=== PATIENT | male | born 1960 | race Caucasian/White ===

== ENCOUNTER → 2020-03-28 15:07 | Outpatient (CLI) | payer BC, SELFPAY ==
--- NOTE | ~2020-03-28 | XR_ITS ---
EXAMINATION: XR knee RT min 4V DATE: 03/28/2020 15:34 INDICATION: Right knee pain. TECHNIQUE: 4 views of right knee were obtained. COMPARISON: None. FINDINGS: Bone alignment is normal. No fracture. There is mild tricompartmental osteoarthritis. There is a small knee joint effusion. IMPRESSION: 1. Mild right knee osteoarthritis. 2. Small right knee joint effusion. Reviewed, dictated and finalized at location A. ORT STATION SUPERVISOR
== END ==
PROVIDERS: PCP Family Medicine Adolescent Medicine; Visit Provider Family Medicine Adolescent Medicine
DX: M17.11 Unilateral primary osteoarthritis, right knee (principal); M25.461 Effusion, right knee
CPT/HCPCS: 73564

== ENCOUNTER → 2021-12-11 10:05 | Outpatient (CLI) | payer OTHER, SELFPAY ==
--- NOTE | ~2021-12-11 | MR_ITS ---
EXAMINATION: MR thoracic spine wo con DATE: 12/11/2021 10:53 INDICATION: Paresthesias of both lower legs. TECHNIQUE: Magnetic resonance imaging (MRI) of the thoracic spine was performed without intravenous c ontrast. Sagittal localizer T1-weighted FSE of the cervical spine was obtained. Thoracic spine sequen michelle included sagittal T2-weighted FSE, sagittal T1-weighted FSE, sagittal T2-weighted FS FSE, and axi al T2-weighted FSE. COMPARISON: None FINDINGS: There is 5 degrees levocurvature of upper thoracic spine. Vertebral body heights are normal . There is severe cervical spondylosis. There is mildly decreased disc height at T5-T6. At T5-T6, the disc is bulging with mild central canal stenosis. At T7-T8, there is a left central protrusion with mild central canal stenosis. At T8-T9, there is a right central extrusion with mild central canal annamarie nosis. There is multilevel facet joint osteoarthritis in thoracic spine, severe on the right at T3-T4 and on the left at T5-T6 and T10-T11. On the right, there is mild neural foraminal stenosis at T3-T4 and T4-T5 and moderate neural foraminal stenosis at T10-T11. On the left, there is mild neural andra inal stenosis at T1-T2 and T9-T10 and moderate neural foraminal stenosis at T10-T11. The spinal cord signal intensity is normal. IMPRESSION: 1. Severe cervical spondylosis and moderate thoracic spondylosis. Reviewed, dictated and finalized at location B.
--- NOTE | ~2021-12-11 | MR_ITS ---
EXAMINATION: MR lumbar spine wo con DATE: 12/11/2021 11:00 INDICATION: Tingling in the legs. TECHNIQUE: Magnetic resonance imaging (MRI) of the lumbar spine was performed without intravenous con trast. Sequences included sagittal T2-weighted FSE, sagittal T2-weighted FS FSE, sagittal T1-weighted FSE, and axial T2-weighted FSE. COMPARISON: None FINDINGS: There is 3 degrees levocurvature of lumbar spine. Vertebral body heights are normal. There is moderately decreased disc height at L2-L3. The distal spinal cord signal intensity is normal. The conus medullaris is at L1. The following disc levels are specifically discussed: L1-L2: The disc does not extend beyond the endplate margin. There is moderate bilateral facet joint o steoarthritis. There is no neural foraminal stenosis. There is no central canal stenosis. L2-L3: The disc is bulging. There is mild bilateral facet joint osteoarthritis. There is moderate rig ht and mild left neural foraminal stenosis. There is mild central canal stenosis. L3-L4: The disc is bulging and has an annular fissure. There is severe bilateral facet joint osteoart hritis. There is a 7 mm synovial cyst from left facet joint in the epidural space. There is moderate bilateral neural foraminal stenosis. There is moderate central canal stenosis. L4-L5: The disc is bulging as an annular fissure. There is severe bilateral facet joint osteoarthriti s. There is moderate right and severe left neural foraminal stenosis. There is moderate central canal stenosis. L5-S1: The disc is mildly bulging. There is severe bilateral facet joint osteoarthritis. There is mil d bilateral neural foraminal stenosis. There is no central canal stenosis. IMPRESSION: 1. Moderate lumbar spondylosis. Reviewed, dictated and finalized at location A.
== END ==
PROVIDERS: PCP Family Medicine Adolescent Medicine; Visit Provider Family Medicine Adolescent Medicine
DX: R20.2 Paresthesia of skin (principal); M47.896 Other spondylosis, lumbar region; M47.894 Other spondylosis, thoracic region; M47.892 Other spondylosis, cervical region
CPT/HCPCS: 72146; 72148

== ENCOUNTER → 2022-02-08 11:39 | Outpatient (CLI) | payer OTHER, SELFPAY ==
--- NOTE | ~2022-02-08 | XR_ITS ---
EXAMINATION: XR lumbar spine min 4V DATE: 02/08/2022 11:51 INDICATION: Chronic low back pain TECHNIQUE: Anteroposterior and lateral in neutral, flexion and extension views of the lumbar spine we re obtained. COMPARISON: MRI, 12/11/2021 FINDINGS: The vertebral body heights and alignment are normal. No hypermobility is present with flexi on or extension. There is moderate loss of intervertebral disc space height at L2-3. Small degenerati ve osteophytes project from the anterior endplates of multiple vertebral bodies. There is severe face t joint osteoarthritis of lower lumbar spine. There is moderate osteoarthritis of the hips. IMPRESSION: 1. Moderate lumbar spondylosis without acute findings. Reviewed, dictated and finalized at location A. ICAL MACHINE TENDER
== END ==
PROVIDERS: PCP Neurological Surgery; Visit Provider Neurological Surgery
DX: M48.061 Spinal stenosis, lumbar region without neurogenic claudication (principal); M47.896 Other spondylosis, lumbar region
CPT/HCPCS: 72110

== ENCOUNTER 2022-02-08 13:03 | Outpatient (CLI) | payer OTHER, SELFPAY ==
--- NOTE | 2022-02-08 13:40 | ECG_ITS ---
Measurements Intervals [place] Rate: 68 P: 55 HI: 203 QRS: 13 QRSD: 94 T: -1 QT: 364 QTc: 389 Interpretive Statements SINUS RHYTHM WITHIN NORMAL LIMITS NO PREVIOUS ECG AVAILABLE FOR COMPARISON Electronically Signed On 02-08-2022 16:45:36 [employer] MATERIAL by Esvin Savage M.D.
[2022-02-08 13:48] LABS: Basophils Absolute Auto 0.1 K/mm3 (0.0-0.1); Basophils Percent Auto 1.3 % (0.2-1.2); Eosinophils Absolute Auto 0.2 K/mm3 (0-0.3); Hematocrit 45.9 % (42.0-52.0); Hemoglobin 15.8 g/dL (14.0-18.0); Immature Granulocyte Absolute 0.01 K/mm3 (0.00-0.031); Immature Granulocyte Percent A 0.2 % (0-0.5); Lymphocytes Absolute Auto 1.52 K/mm3 (0.9-3.2); Lymphocytes Percent Auto 27.7 % (18.3-44.2); Mean Corpuscular HGB Conc 34.4 g/dl (32-36); Mean Corpuscular Hemoglobin 31.3 pg (26-34); Mean Corpuscular Volume 90.9 fl (80-100); Mean Platelet Volume 9.1 fl (7.4-10.4); Monocytes Absolute Auto 0.6 K/mm3 (0.1-0.6); Monocytes Percent Auto 10.4 % (2.6-8.5); Neutrophils Absolute Auto 3.1 K/mm3 (1.3-6.7); Neutrophils Percent Auto 56.4 % (45.5-73.1); Platelet Count Result 165 k/mm3 (150-375); Red Blood Count 5.05 M/mm3 (4.6-6.20); Red Cell Distribution Width 12.4 % (11.5-14.5); White Blood Count 5.5 K/mm3 (4.5-10.0)
[2022-02-08 14:01] LABS: Anion Gap 6 mmol/L (8-16); Blood Urea Nitrogen 17 mg/dL (9-20); Calcium 9.3 mg/dL (8.4-10.2); Carbon Dioxide 31 mmol/L (22-30); Chloride 100 mmol/L (98-107); Estimated Glomerular Filt Rate > 60; Glucose 103 mg/dL (65-110); Potassium 3.9 mmol/L (3.4-5.0); Sodium 137 mmol/L (137-145)
[2022-02-08 14:03] LABS: INR 1.1; Partial Thromboplastin Time 25.7 SECONDS (22.3-36.8); Prothrombin Time 13.5 Seconds (11.1-14.7)
[2022-02-08 14:26] LABS: Add Urine Microscopic? NO; Appearance Urine Clear (Clear); Bilirubin Urine Negative (Negative); Blood Urine Negative (Negative); Color Urine Light Yellow (Yellow); Glucose Urine UA Negative (Negative); Ketones Urine Negative (Negative); Leukocyte Esterase Ur Negative LEU/UL (Negative); Nitrate Urine Negative (Negative); Protein Urine Negative (Negative); Specific Grav Ur 1.015 (1.001-1.035); Urobilinogen Urine 0.2 mg/dL (<2.0)
== END 2022-02-08 13:04 | disposition home or self-care (01) ==
PROVIDERS: PCP Neurological Surgery; Visit Provider Neurological Surgery
DX: Z01.818 Encounter for other preprocedural examination (principal)
CPT/HCPCS: 36415; 80048; 81003; 85025; 85610; 85730; 86850; 86900; 86901; 93005

== ENCOUNTER 2022-03-29 02:01 | Day surgery (SDC) | payer OTHER, SELFPAY ==
[2022-03-20 12:46] VITALS: BMI 27.1
--- NOTE | 2022-03-20 12:51 | PC.NURSE ---
Report to the Outpatient Waiting Room, entrance under the green pavilion located off [facility], at time 0600 on date 03/29/22. Planned Procedure Time: 0730. Time changes happen often and if your time is changed the preop area will call you the afternoon before. - You and your visitor will be asked to self-screen and do not enter if you have any COVID symptoms. - Only one visitor is requested with a max of two and NO children visitors are allowed at this time. - The patient visitor may be requested to leave or wait in car when not with patient due to distancing restrictions. - A mask is optional within the hospital at this time. Patients may have clear liquids (water, carbonated beverages, clear teas, apple juice) until 3 hours prior to surgery with a maximum of 20 ounces. - No food from midnight until time of surgery Take the following medications with a SIP of water the morning of surgery: NONE DO NOT STOP ANY OF YOUR OTHER PRESCRIPTION MEDICATIONS PRIOR TO SURGERY?EXCEPT THE FOLLOWING Medications to discontinue per physician: N/A Date to take last dose: N/A Please no make-up, nail filipino, hairspray, perfume, deodorant, or body powder the day of surgery. No jewelry (including any body piercings) or valuables the day of surgery, leave them at home. Please take a shower or bath the night before, or the morning of, surgery with an antibacterial soap. Wear comfortable, loose fitting clothing. Children are encouraged to wear pajamas. - Jewelry must be removed prior to entering the operating room. Rings and piercings that are not removed may be cut off. - The hospital will not accept responsibility for valuables. - Please leave all valuables, including medications, at home the day of surgery. If you are going home after surgery, a licensed dump truck driver off highway must drive you home. - NO public transportation without another adult if you receive anesthesia. - We recommend that an adult stay with you for 24 hours following discharge. - We also recommend that you do not drive, make important decision, drink alcoholic beverages, or take any drugs that were not prescribed by your health care provider for at least 24 hours after your discharge time. Follow any additional instructions given to you from your surgeon. If you or anyone in your household have experienced Covid symptoms in the past week, please notify your surgeon or the nurse liaison at the phone number below for possible testing. Telephone instructions given to PT - MARLENE ALEXANDRE and asked if any additional questions and then verbalized understanding. Patient advised to call surgeon office or pre surgery nurse liaison [phone] if any additional questions.
[2022-03-29] VITALS (11 sets, daily range): BP systolic 133–188; BP diastolic 69–106; PULSE 76–100; RESP 8–20; TEMP 36–36.5; O2SAT 92–100
--- NOTE | ~2022-03-29 | XR_ITS ---
EXAMINATION: XR fluoroscopy no charge DATE: 03/29/2022 11:14 INDICATION: L3-L4 and L4-L5 lumbar decompression TECHNIQUE: 4 fluoroscopic images obtained in lateral projection of the lower lumbar spine during proc edure performed by Dr. Rouse. Radiologist was not present for the imaging or procedure. The amount of fluoroscopy time used during this procedure was 0.1 minutes. COMPARISON: Right breast dated 02/08/2022 FINDINGS/IMPRESSION: Images demonstrate surgical instruments laying soft tissue retractors projecting over a lucent operat wyatt defect posterior to the lower lumbar spine. See procedure note for further detail. Reviewed, dictated and finalized at location A. PROCESSING CONSULTANT
[2022-03-29] MEDS: LACTATED RINGERS 1,000 ML 30 ML IV CONT ×2 (06:20→11:18)
--- NOTE | 2022-03-29 07:03 | WPDANESEPPF ---
Anes - Initial Pre Proc Eval Procedure: Operation Date: 03/29/22 08:00 Proposed Procedures p L3-4, L4-5 Lumbar Decompression - Quyen Rouse MD Date/Time: 03/29/22 07:03 Surgeon: Quyen Rouse MD Pre Op Diagnosis: lumbar stenosis, synovial cyst Patient Data Age: 62 Gender: M Height: 1.83 m Weight: 90.4 kg Last Vital Signs Temp 36.0 C L 03/29/22 06:12 Pulse 88 03/29/22 06:12 Resp 16 03/29/22 06:12 BP 133/88 03/29/22 06:12 Pulse Ox 98 03/29/22 06:12 O2 Del Method Room Air 03/29/22 06:12 Allergies Allergy/AdvReac Type Severity Reaction Status Date / Time No Known Allergies Allergy Verified 03/29/22 06:52 Home Medications Medication Instructions Recorded Confirmed Type enalapril 10 1 tablet PO DAILY #90 tabs 05/18/21 03/29/22 Rx mg-hydrochlorothiazide 25 mg tablet trazodone 100 mg tablet 100 mg PO QHS #90 tabs 05/18/21 03/29/22 Rx fenofibrate 160 mg tablet 160 mg PO DAILY #90 tabs 02/06/22 03/29/22 Rx pravastatin 40 mg tablet 40 mg PO DAILY #90 tabs 02/06/22 03/29/22 Rx Patient hx anesthesia problems: none Family hx anesthesia problems: none Results Review: All pre-operative results and documents have been reviewed as part of the pre-operative evaluation. [facility]LY [facility] Past Medical History Medical History Normal colonoscopy 03/10 Repeat 03/20 Surgical History Surgical History History of hemorrhoidectomy (2017) History of vasectomy Family History Family History Sibling Family history of elevated blood lipids Father Family history of cardiovascular disease Other Diabetes mellitus Family history of malignant neoplasm Hypertension Social History Social History Smoking packs per day: 2 Smoking cigarettes per day: 40.0 Years smoked: 12 Smoking pack-years: 24.00 Smoking status: Former smoker Tobacco type: cigarettes Second hand tobacco smoke exposure: No Smoking end date: 02/24/87 Alcohol intake: current Alcohol use details: RARE Substance use: never Substance use type: does not use Living arrangements: with family Occupation/Education: retired Gender identity (if verbalized by the patient): Male Sexual Orientation (if Verbalized by the Patient): Straight or Heterosexual Spiritual care concerns: No Agree to blood products: Yes Anes - Eval Final PreProcedure Day of Procedure 03/29/22 07:03 Patient weight: normal Heart: regular rate and rhythm Lungs: clear to auscultation Airway: Mallampati scale class II Neurological: alert and oriented Last oral intake: >/= 8 hours ASA classification: II Emergent: no Anesthetic plan: proceed Anesthesia type and monitoring: general ETT and standard monitoring Results Review: All pre-operative results and documents have been reviewed as part of the pre-operative evaluation. Informed Consent: The patient's anesthetic plan and its attendant risks and benefits were discussed with the patient/family/POA. Questions were solicited and answers provided to the satisfaction of the patient/family/POA.
--- NOTE | 2022-03-29 08:09 | PM.IMHP ---
H&P: HPI History of Present Illness Date/Time: 03/29/22 08:09 Chief Complaint: Alber Arciniega? is a very pleasant 62-year-old [id number] male who originally presented and was seen in December 2021 at the request of Dr. Cassidy with a chief complaint of low back and lower extremity pain, sensory change, and subjective weakness.? At the time of our initial visit, the patient noted onset of symptoms in February of 2021.? At that time he primarily described pain in the low back.? He described pain that was worse with standing or walking.? Was referred for physical therapy.? He completed 2 courses of physical therapy and noted improvements in his back pain.? He has noted, however, some degree of persistent back pain and over the last several months he has noted increasing symptoms into his lower extremities.? He notes intermittent radiating pain from the low back to the left buttock, posterior thigh, bran and foot.? He also notes intermittent pain and sensory change in the anterior thighs with radiation to the shins.? He notes the symptoms when he stands or walks any significant distance.? He also notes symptoms when he coughs.?? When seated he denies significant pain.? When he stands or walks, he does note pain and sensory change.? He also notes a subjective sense of weakness.? He has a sense that the left leg will give out when he is doing activities that he enjoys including golf or pulling.? He also notes that climbing stairs is difficult. Alber has undergone MR imaging of the lumbar spine performed on December 11, 2021 at [facility].? This showed multilevel spondylotic changes.? There is disc desiccation at L2-3, L3-4, and L4-5.? In particular, at L3-4 a combination of disc bulge and a left-sided synovial cyst contribute to moderate to severe central stenosis and severe left lateral recess stenosis.? At L4-5 a combination of a disc bulge and ligamentous hypertrophy contribute to moderate to severe central stenosis.? 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 This is not commented on an MRI report. The patient, as above, has participated in 2 courses of physical therapy.? He has seen a chiropractor.? He had not had epidural steroid injections at the time of our initial visit.? He has not had prior spine surgery.? He is increasingly frustrated by symptoms.? He indicates things that he would enjoy a including golf, pulling, or playing basketball with his grandson.? He is not able to do these activities because of pain as well as a subjective sense of weakness.? He presented for recommendations regarding the most appropriate steps in management of his symptoms and radiographic findings.? We discussed consideration of interventional measures including epidural steroid injection.? Denies has had an epidural steroid injection with Dr. Aguilera targeting L4-5.? This did not give significant or lasting relief of the patient's symptoms.? Consideration is being given to a repeat injection, now targeting L3-4.? He is scheduled for this injection in the next few days At a january visit, however, the patient emphasized that he was increasingly bothered by his sensory symptoms in his lower extremity and has subjective sense of weakness, particularly when he stands.? He has had his legs give way several times.? He also mentions that he has had difficulty with intimacy with his and difficulties with obtaining an erection over the past 9 months.? He is increasingly worried about these symptoms and is inclined to consider surgery if it is an option.? He has undergone AP lateral and dynamic plain x-rays that show no evidence of significant scoliosis, listhesis, dynamic instability PMFSH Past Medical History Medical History Normal colonoscopy 03/10 Repeat 03/20 Surgical History Surgical History (Reviewed
--- NOTE | 2022-03-29 08:18 | WPDHPUPDATE1 ---
History and Physical Update Update Date/Time: 03/29/22 08:18 History and Physical has been reviewed, including an updated exam of the patient. There are NO changes in the patient's condition. Risks, benefits, and alternatives have been discussed and questions answered. Patient agrees to proceed with procedure.
[2022-03-29] MEDS: ceFAZolin 2 GM/D5W 50 ML 2 GM/50 ML BAG IVPB (08:46)
[2022-03-29] MEDS: BUPivacaine HCL 0.5% PF 30 ML VIAL INFILTRATE (09:26)
[2022-03-29] MEDS: LIDO 1%/EPINEPHRINE 1:100,000 20 ML VIAL 10 ML INFILTRATE (09:26)
--- NOTE | 2022-03-29 10:56 | W.PM.PROC2 ---
Procedure Note - Detailed Date of Procedure 03/29/22 Pre-op Diagnosis lumbar stenosis, synovial cyst Post-op Diagnosis Same Procedure Performed lumbar decompression with laminectomy and foraminotomies, L3-4 and L4-5 with removal of synovial cyst, left, L3-4 Surgeon Quyen Rouse MD Anesthesia General Indications Alber Arciniega is a very pleasant? 62 year old? male who presents at the request of? Dr. Cassidy with signs and symptoms of? claudicatory low back and left greater than right lower extremity pain, sensory change, and subjective weakness that fits best with at L4 and L5 distribution in the setting of? lumbar stenosis, caused by a combination of synovial cyst at L3-4 and spondylotic changes at L4-5 on imaging.? Alber has tried treatments that include? 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 He has had persistent claudicatory symptoms despite these measures.? He feels that his symptoms are progressing.? He is frustrated by a sense of subjective weakness. In the office today the most concerning symptom to the patient is? that he is unable to do activities that he enjoys including golf, bowling, and playing basketball with his grandson.? He is 62 and typically very active at the gym and finds that many activities are limited due to his sense of subjective weakness. ? he does have a finding of mild objective weakness examination.? He has had no relief of his symptoms steroid injection The patient and I have had an extended discussion in the office? regarding the options for management of these clinical symptoms and radiographic findings. We have discussed the option of additional physical therapy and the benefit to a formal course of physical therapy. We have discussed the option of repeated interventional pain management strategies including MARSHA or ablative procedures. In this case we have more specifically discussed that? given the patient's lack of response to an epidural steroid injection targeting L4-5 and in particular given his increasing concerns with his sensory symptoms, subjective weakness, falls, and erectile dysfunction, I do not suspect that repeated times at interventional measures would be beneficial Finally, we have thus discussed the option of surgery.? I have explained that my preference is to exhaust non surgical options prior to consideration of surgery. However, we have discussed that as he has been unable to obtain durable relief of symptoms with non surgical measures,? and in particular given his constellation of subjective complaints and the finding of significant stenosis, that it would be very reasonable to consider surgical intervention. In this case we have discussed that surgery would likely entail a? lumbar decompression at L3-4 and L4-5? to address both the spinal stenosis as well as the synovial cyst. ? Given the lack of dynamic instability seen plain x-rays, there is no need for consideration of an adjunctive instrumented fusion Mr. Arciniega is inclined to pursue surgery. I have discussed the indications as well as the risks of surgery including but not limited to bleeding, infection, CSF leak, numbness, weakness, paralysis, stroke, coma, even . We have discussed the fundamentals of the surgical procedure as well as the typical recovery from surgery.? we have discussed that surgery is not a guarantee of sikhism of function but offers our best chance for recovery of function.? Alber indicates understanding and asks us to proceed with surgery, specifically a? lumbar decompression including laminectomy and foraminotomies at L3-4 and L4-5 with removal of synovial cyst at L3-4 Description of Procedure The patient was brought into the operating room where general anesthesia was induced.? Appropriate monitoring was obtained.? The patient was turned into a prone position on the Jordan table with a Bayron frame.? Extremeties were padded.? The patient was secured with straps to the table.? Localization was performe
--- NOTE | 2022-03-29 12:40 | SUR.PHASEI ---
Called Dr Rouse and updated regarding drain and status. Ok's to move to OP recovery.
[2022-03-29] MEDS: PROPARACAINE HCL 0.5% 15 ML OPHTH SOLN 1 DROP EACH EYE (13:16)
[2022-03-29] MEDS: ARTIFICIAL TEARS OPHTH SOLN 15 ML BOTTLE 1 DROP EACH EYE (13:55)
[2022-03-29] MEDS: oxyCODONE HCL (*CRX) 5 MG TAB IR PO (14:40)
--- NOTE | 2022-03-29 15:20 | SUR.PHASEII ---
Addendum entered by Antonino Keating RN 03/29/22 15:22: 1345 dr heredia notified of drain output, ok for drain to be removed Original Note: 1445 dr heredia notified of amount of drain output, she is ok for drain to be removed.
--- NOTE | 2022-03-29 15:24 | SUR.PHASEII ---
1415 dr heredia notified and given update on pt condition after walking in the hallways, dr heredia spoke with pt and is ok for discharge
== END 2022-03-29 14:55 | disposition home or self-care (01) ==
PROVIDERS: PCP Family Medicine Adolescent Medicine; Visit Provider Neurological Surgery
PROC: (CPT 22612; principal; 2022-03-29 08:00)
DX: M48.061 Spinal stenosis, lumbar region without neurogenic claudication (principal); M71.38 Other bursal cyst, other site; Z87.891 Personal history of nicotine dependence
CPT/HCPCS: 63047; 63267; 36415; 86850; 86900; 86901; 99199; A9270; J0690; J1100; J1170; J2250; J2405; J2704; J2710; J3010; J3370; J7040; J7120

== ENCOUNTER 2022-07-12 12:51 | Emergency (ER) | payer OTHER, SELFPAY ==
[2022-07-12 12:59] VITALS: BP 159/53; PULSE 84; RESP 16; TEMP 36.7; O2SAT 99
--- NOTE | 2022-07-12 13:19 | ED.LOWEXIN ---
HPI - Extremity Injury (Lower) General Chief Complaint: Extremity Injury, Lower Stated Complaint: Lt Knee Pain Time Seen by Provider: 07/12/22 13:04 Source: patient, family () and RN notes reviewed Mode of arrival: ambulatory Limitations: no limitations History of Present Illness HPI Narrative: Patient presents today complaining of left knee pain. States his left knee popped twice this morning very loudly when he was doing and IT Band stretch where his left leg is crossed over his right leg and he was pushing his left knee down towards the floor. After his knee popped it gave out a few times when he stood up. Denies numbness or tingling in the leg or foot. He has no pain at rest, but this increases to 8/10 with weight-bearing. He took 2 Aleve this morning for pain. He had spinal surgery on his lumbar spine in March. Related Data Home Medications Medication Instructions Recorded Confirmed sildenafil 100 mg tablet 100 mg PO PRN PRN Erectile 07/12/22 07/12/22 Dysfunction Allergies Allergy/AdvReac Type Severity Reaction Status Date / Time No Known Allergies Allergy Verified 07/12/22 12:52 Review of Systems Review of Systems: CONSTITUTIONAL: Denies body aches, fever, chills, or sweats. EYES: Denies visual changes, redness, or discharge. ENT: Denies rhinorrhea, congestion, sore throat, or otalgia. CARDIOVASCULAR: Denies chest pain, palpitations, or edema. RESPIRATORY: Denies cough or dyspnea. GASTROINTESTINAL: Denies abdominal pain, nausea, vomiting, or diarrhea. GENITOURINARY: Denies dysuria or hematuria. SKIN: Denies rash, itching, or wounds. MUSCULOSKELETAL: Denies back pain, or myalgia.+ left knee pain NEUROLOGIC: Denies headache, numbness, tingling, or weakness. PSYCH: Denies depression or anxiety. [facility] Past Medical History Medical History Normal colonoscopy 03/10 Repeat 03/20 Surgical History Surgical History History of hemorrhoidectomy (2017) History of vasectomy Family History Family History Sibling Family history of elevated blood lipids Father Family history of cardiovascular disease Other Diabetes mellitus Family history of malignant neoplasm Hypertension Social History Social History Smoking packs per day: 2 Smoking cigarettes per day: 40.0 Years smoked: 12 Smoking pack-years: 24.00 Smoking status: Former smoker Tobacco type: cigarettes Second hand tobacco smoke exposure: No Smoking end date: 02/24/87 Alcohol intake: current Alcohol use details: RARE Substance use: never Substance use type: does not use Living arrangements: with family Occupation/Education: retired Gender identity (if verbalized by the patient): Male Sexual Orientation (if Verbalized by the Patient): Straight or Heterosexual Spiritual care concerns: No Agree to blood products: Yes Comments At time of signature, I have reviewed and agree with nursing past medical, surgical, social and family history unless otherwise noted. Please see nursing chart for further information. There is no relevant family history pertinent to the presenting complaint Exam Narrative: GENERAL: Well-appearing, well-nourished, and in no acute distress. HEAD: Normocephalic, atraumatic. EYES: EOMI. No redness or drainage. Conjunctivae normal. ENT: Mucous membranes pink and moist. NECK: Normal AROM. CHEST: No respiratory distress. EXTREMITIES: Left knee: Entirety of left knee is nontender. Patient has full P ROM of the knee without pain. No edema noted. No ecchymosis or erythema noted. Distal sensation intact. Capillary refill normal. Pedal pulse normal. No laxity of the joint noted. SKIN: Warm, dry, no rash. Capillary refill fabiano
== END 2022-07-12 13:27 | disposition home or self-care (01) ==
PROVIDERS: Emergency Provider Nurse Practitioner; PCP Family Medicine Adolescent Medicine
DX: M25.562 Pain in left knee (principal); Z87.891 Personal history of nicotine dependence; Z98.52 Vasectomy status
CPT/HCPCS: 99212; G0463

== ENCOUNTER → 2022-07-15 11:18 | Outpatient (CLI) | payer OTHER, SELFPAY ==
--- NOTE | ~2022-07-15 | XR_ITS ---
XR knee LT 3V 07/15/2022 11:51 INDICATION: Left knee pain PROCEDURE: 3 views left knee COMPARISON: 07/03/2009 FINDINGS: Fracture, dislocation or subluxation is not identified. No significant joint effusion. The soft tissues appear within normal limits. No foreign bodies are identified. IMPRESSION: 1: NO ACUTE BONE OR JOINT ABNORMALITY IDENTIFIED. Reviewed, dictated and finalized at location B.
== END ==
PROVIDERS: PCP Family Medicine Adolescent Medicine; Visit Provider Family Medicine Adolescent Medicine
DX: M25.562 Pain in left knee (principal)
CPT/HCPCS: 73562

== ENCOUNTER → 2022-07-15 11:21 | Outpatient (CLI) | payer OTHER, SELFPAY ==
--- NOTE | ~2022-07-15 | XR_ITS ---
EXAM: XR hip LT min 3V w AP pelvis DATE: 07/15/2022 11:52 HISTORY: M25.552 - Pain in left hip . COMPARISON: None available. FINDINGS: Normal mineralization. No fracture or dislocation. No lytic or blastic lesion. Moderate bi lateral hip joint space narrowing, subchondral sclerosis, and osteophytosis, greater in the left hip. Scattered pelvic enthesopathy. Mild degenerative change in the lumbar spine. No erosion or periostea l change. Pelvic phleboliths. IMPRESSION: Moderate bilateral hip osteoarthritic arthritis, worse in the left hip. Reviewed, dictated and finalized at location K.
--- NOTE | ~2022-07-15 | XR_ITS ---
EXAM: XR lumbar spine 2-3V DATE: 07/15/2022 11:52 HISTORY: M71.38 - Other bursal cyst, other site . COMPARISON: 02/08/2022. FINDINGS: 5 nonrib-bearing lumbar-type vertebral bodies. Pedicles intact. 2 mm retrolisthesis at L2- 3. Altered level disc space narrowing, most pronounced at L2-3. Multilevel marginal osteophytes, incl uding bridging lateral osteophytes. Multilevel facet hypertrophy and sclerosis at L3-4 through L5-S1. Laminectomy defects at L3 and L4. IMPRESSION: Grade 1 retrolisthesis at L2-3. Multilevel moderate degenerative disc disease. Multilevel moderate-severe lower lumbar facet arthropathy. Reviewed, dictated and finalized at location K. IMPRESSION: Grade 1 retrolisthesis at L2-3. Multilevel moderate degenerative di sc disease. Multilevel moderate-severe lower lumbar facet arthropathy.
== END ==
PROVIDERS: PCP Family Medicine Adolescent Medicine; Visit Provider Neurological Surgery
DX: M48.061 Spinal stenosis, lumbar region without neurogenic claudication (principal); M71.38 Other bursal cyst, other site; R20.2 Paresthesia of skin; M51.36 Other intervertebral disc degeneration, lumbar region; M16.0 Bilateral primary osteoarthritis of hip
CPT/HCPCS: 72100; 73502

== ENCOUNTER → 2022-07-19 13:45 | Outpatient (CLI) | payer OTHER, SELFPAY ==
--- NOTE | ~2022-07-19 | MR_ITS ---
MRI of the left knee Clinical history: Pain Technique: Coronal proton density and proton density-weighted images, sagittal proton-density and T2 fat-sat images, and axial proton-density fat-saturated images were acquired. Findings: Anterior and posterior cruciate ligaments are intact. Medial collateral ligament and the la teral collateral ligament complex are intact. Popliteus tendon is intact. There is a radial tear at the posterior root of the medial meniscus. No lateral meniscal tear identif ied. Articular cartilage in the medial and lateral compartments is well preserved. Femoral trochlear carti annabella is well preserved. There is patchy mild chondromalacia patella, most notably at the apex. Extensor mechanism is intact. No significant joint effusion or Oneill's cyst. Impression: Radial tear at the posterior root of the medial meniscus. Mild chondromalacia patella. Reviewed, dictated and finalized at [facility]. Impression: Radial tear at the posterior root of the medial meniscus. Mild chondromalacia patella.
== END ==
PROVIDERS: PCP Family Medicine Adolescent Medicine; Visit Provider Family Medicine Adolescent Medicine
DX: S83.242A Other tear of medial meniscus, current injury, left knee, initial encounter (principal); X58.XXXA Exposure to other specified factors, initial encounter
CPT/HCPCS: 73721

== ENCOUNTER 2025-01-18 01:24 | Day surgery (SDC) | payer MEDICARE, SELFPAY ==
[2025-01-04 11:15] VITALS: BMI 26.4
--- OUTSIDE RECORDS SUMMARY | 2025-01-18 01:27 | XMS_ITS | Clinical Summary ---
Author Organization [facility] Care Team Providers Care Manager Of Software Name Role Phone Unavailable Primary Care Provider Unavailabl e Immunizations Immunization Administration Dates Next Due Covid-19, Mrna, Lnp-s, PF, 1 00 mcg/0.5 mL Dose (Moderna) 12/29/2020 Social History Tobacco Use Types Packs/Day Years Used Date Smoking Tobacco: Never Assessed Sex and Gender Information Value Date Recorded Sex Assigned at Not on file Legal Sex Male 11:46 PM CDT Gender Identity Not on file Sexual Orientation Not on file Plan of Treatment Health Maintenance Due Date Last Done Comments Hepatitis C Virus (HCV) Screening 1960 TdaP Immunization 1960 Cologuard 2004 Colonoscopy 2004 Colorectal Cancer Screening 2004 Immunochemical Fecal Occult Blood 2004 Pneumococcal Immunization (5 0+ years) (1 of 1 - PCV) 2009 Influenza Immunization (#1) 10/25/202411/25, 12/20/2017 SARS-COV-2 Immunization ( - season) 2024 12/29/2020, 04/28/2020, 03/31/2020 Respiratory Syncytial Virus (RSV) Immunization (Adult) (1 - 1-dose 75+ series) 2034 Zoster Immunization Completed 11/23/2019, 08/26/2019 Hepatitis B Immunization Aged Out No longer eligible based on patient's age to complete this topic Human Papillomavirus (HPV) Immunization Aged Out No longer eligible b ased on patient's age to complete this topic Meningococcal Immunization (ACWY) Aged Out No longer eligible b ased on patient's age to complete this topic Rotavirus Immunization Aged Out No lo nger eligible based on patient's age to complete this topic
--- OUTSIDE RECORDS SUMMARY | 2025-01-18 01:27 | XMS_ITS | Data Portability ---
Author Organization [place] [facility] [place] [facility], Main Office Address [address] [place] [address] Care Team Providers Care Dairy Hand Name Role Phone ANTONIO WEBB Primary Care Provider ANTONIO WEBB Referring Provider Assessment Encounter Date Assessment Date Assessment LastModified by Organization Details LastModified Time 09/16/2022 09/16/2022 HPI: 62-year-old male came in today for evaluation of his left buttock pain. Patient has been having symptoms for over 9 months. Patient had low back surgery done in March of this year by Dr. Baldwin. He was doing his rehab following dissectomy of L4-5 and L5-S1. He was getting a lot of pain not only in the back but also into the left buttocks. The physical therapist noted that his hip was little painful with range of motion as well as stiff. Dr. Baldwin ordered x-rays of his left hip and pelvis which he brought in today. I did review the x-rays and he has moderately severe type on osteoarthritis of the left hip. There was hypertrophic changes of the femoral head as well as the acetabulum. There is no flattening of the femoral head. It is more bullet-shaped at this point. He also has the same pattern of osteoarthritis in the right hip. He has about a mm of joint space remaining the superior aspect in the right hip. Patient's chief complaint is the pain in the left buttocks. It is deep within the buttocks. He states that when he gets up from a seated position he has a difficult time straightening up because it feels very tight in his back and he has pain in the buttocks. He rarely has any pain in the left groin or left anterior lateral hip. Patient goes to the gym 2 or 3 times a week and exercises regularly and has done this for very long time. He does not have any problem exercising. He states that there is no definite activity that causes the pain in the buttocks to worsen or improve. It is kind of a constant pain. It seemed to be worse when he was in therapy recovering from his low back surgery. It has improved since he stopped going to therapy altogether. He has been taking naproxen over the counter, 2 pills in the morning and 2 at night. I asked patient if he was having this same buttock pain prior to his low back surgery and he was not sure. He states prior to his low back surgery he was just having severe pain in low back. He was unable to walk upright because of pain. Physical exam 62-year-old male very alert. He walks well without assistance or limp. He is 5 ft 10 and 200 lb. He is very muscular in both the upper and lower extremity. When he gets up from a seated position he has a difficult time straightening to a full upright position. It takes him a little bit of time. He can a grabs at his back when he does this. He has no pain lying supine on the table. His left hip flexes to 120 with some mild anterior lateral groin pain. External rotation 40 with minimal discomfort and internal rotation to 20 with minimal anterior lateral hip pain. He has a negative Stinchfield maneuver. Range motion of his hip did not reproduce or worsen the pain in the left buttocks. He complains no numbness or tingling down the left leg. 2+ posterior artery pulse. No swelling in either lower extremity. He has normal motor function to hip flexors, quad, dorsiflexion. Impression: 62-year-old male who has moderately severe osteoarthritis left hip. This point I am not sure whether not his symptoms in the left buttocks are coming from his hip or if they are still residual symptoms from his back. Given his symptoms and his descriptions I think this may still be residual symptoms from his back. He does have very severe osteoarthritis left hip but does not have significant symptoms with physical exam or provocative maneuvers of the hip. He is able to go to the gym several times a week and does not seem to be having any symptoms emanating from his hip. He is a very active individual and is on his feet a lot and certainly he would expect him to have more symptoms with normal daily activities if his hip was giving him the symptoms. Certainly there is always possibility this could be emanating from the hip. At some point I discussed with him he is going to need total hip arthroplasty in both of his hips given his young age and the Severity of the arthritis he has in his hips. He has been taking naproxen fairly regularly at a higher dose and I have recommended trying a different anti-inflammatory to see if there is some improvement of his symptoms. He has no GI intolerance and I have recommended diclofenac 75 mg b.i.d. at this point. Talked about exercising his low back and core muscles to see if this would help improve some of his symptoms. He has been a person who has exercise most of his life and is comfortable doing some of these exercises on his own and see if this will help improve his symptoms. See him back in a month for re-evaluation. 30 minutes was spent in treatment patient more than half of this in [id number] conversation [email or web address] Not available 09/16/2022 16:45:19 10/14/2022 10/14/2022 Impression: Patient has 2 problems I believe. 1. 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 The fusion appears to be extensive and longstanding bilaterally and I doubt this would cause any symptoms coming directly from the fused sacroiliac joint may exacerbate symptoms coming from the lumbar spine. Treatment options would include physical therapy and continue with diclofenac and weight loss may be beneficial. He is mildly overweight. With respect to diclofenac I recommended that have blood work after 3 months. He denies any history of liver disease kidney disease or peptic ulcer disease. I explained that this medication is metabolized by the liver and some patients will have problems with the liver which can be diagnosed on. I have given him refills to last him until November and he will require a CMP and CBC before we will fill it again. I have suggested he may follow-up with Dr. Rouse for recommendations on an optimal home exercise program for his back And whether formal physical therapy will be indicated for that purpose. 2. Patient does have moderately severe osteoarthritis of his left hip. Provocative maneuvers of his left hip reproduces anterolateral hip pain on the left and he does notice this occasionally. Hip replacement will probably be necessary for him at some point in the future. It is difficult to predict the rate of worsening of symptoms or radiographic worsening. Diclofenac tends to be the best anti-inflammatory medication to minimize symptoms associated with osteoarthritis of the hip. I think it would be appropriate to have follow-up x-rays to look for evidence of bone loss or rapid progression of osteoarthritis of the hip and we will plan on seeing him back in December 6 months after the previous x-rays in June for x-rays of left hip and AP pelvis If he has any problems in the meantime I am happy to see him back sooner. 40 minutes were spent in total care this patient with more than half of this time spent in [id number] care. The Not available 10/28/2022 15:18:10 01/13/2023 01/13/2023 Impression: 1. Patient has osteoarthritis of his left hip. I do not believe that his left hip osteoarthritis though is causing the is chief complaint which is the aching pain center of his buttock walks very far progressive weakness in his legs. I believe this is more related to his and he is scheduled to have an MRI scan of his lumbar spine actually [facility] in [place]. DR Rouse ordered this. I have discussed with him that the MRI scan may show new pathology explains his complaints. If it does not, his symptoms may be due to residual arthritic changes in his lumbar spine he may be referred for trial of injections and additional physical therapy for his back. I have discussed with him that at some point he may require left hip replacement and I would predict that hip replacement would alleviate the anterolateral hip pain that he has that is reproduced with standard provocative maneuvers of his left hip. I could not reproduce his buttock pain today that is only reproduced by walking about half a block and gets worse and worse. He states he used to walk a mi which would be 14 labs at the gym and now after 1 of these laps he starts getting this pain in his left buttock and he has to stop if he continues these legs feel weak. He plans to continue with the diclofenac for now and I will be happy to see him back if his left hip symptoms worsen. Not available 01/13/2023 15:55:51 01/31/2023 01/31/2023 Impression: Patient has severe osteoarthritis left hip and I believe that his left hip arthritis is causing his chief complaint today lateral and anterolateral hip pain. I believe this is contributing or the sole cause of his feeling that his legs feel heavy. Frequently patient's will feel like it is very difficult to lift the contralateral foot as this puts all the weight on the symptomatic hip and similarly it is hard to raise the symptomatic leg by flexing at the symptomatic hip because it causes pain and inhibition. I believe that hip replacement would address his stiff hip gait with short steps that he exhibits today and the anterolateral hip pain he complains of is his chief complaint today and his decreasing ability to actively flex the hip. He senses a grinding left hip frequently and it should address that as well. He does not have evidence of neurologic deficit today. He is not having the pain in the cheek the buttock that he was complaining of at last visit and I suspect that that pain in his buttock is likely related to degenerative arthritic changes that he has this lower lumbar spine. I have discussed these issues with him. I explained the option of hip replacement surgery to him I have given handouts direct anterior approach booklet as well as the Ortho info handout on hip replacement surgery. I have discussed risks of surgery with him in detail. I explained that will be numbness around the incision. We discussed the risk of infection. Risk of blood clots was discussed. Risk of nerve injury, bleeding, transfusion, fracture, heterotopic ossification, component loosening and component breakage in need for revision surgery were discussed. Risk of leg length discrepancy and dislocation were discussed. I discussed the risk of medical complications such as heart attack stroke pulmonary embolism and . Patient has had significant worsening of his symptoms over the last month and he would like to proceed with surgery as discussed. I recommended that he go to physical therapy for his hip arthritis. He has completed physical therapy for his lower back. He has not had physical therapy for his hip itself and his insurance company [employer] will require physical therapy for authorization for surgeries we will initiate that at this time they will teach home exercise program I would recommend that he start using a cane in the right hand which will give him some additional relief. I have explained he will need to stop the diclofenac 1 week before surgery. I would like him to see Dr. Cassidy before surgery for medical clearance. His questions were answered and we will tentatively schedule this for him in March. If his symptoms improve with physical therapy of course than his surgery could be postponed if he wished. 1 hour was spent in total care this patient with more than half this time spent in [id number] care. Not available 02/01/2023 16:55:59 Plan of Treatment Reminders Order Date Submit Date Provider Last Modified By Organization Details Last Modified Time Details Appointments None recorded. Lab CBC w/ auto diff - fax results to 2022 023 RONA Not available 3 10:23:25 CMP, serum or plasma 2022 023 RONA Not available 10:23:25 Referral physical therapist referral - see attached 2022 023 ATHENAFAX [facility], [address] [facility] , [place], [address], 3 16:35:25 Procedures None recorded. Surgeries None recorded. Imaging XR, hip, unilateral 2022 023 [email or web address] [facility] [place], [address], [place], [address], 3 10:06:43 XR, hip + pelvis, unilateral , 2 or 3 view 2022 023 [email or web address] [facility] [place], [address], [place], [address], 3 11:21:47 Medication Orders diclofenac sodium 75 mg tablet,del ayed release 2022 023 [id number], [address], [place], [id number], 3 15:08:11 diclofenac sodium 75 mg tablet,del ayed release 2022 023 [id number], [address], [place], [phone], 16:44:49 Patient TargetsNo targets recorded. Patient InstructionsNo instructions recorded. Reason for Referral Physical Therapist Referral for Osteoarthritis of left hip joint see attached Referring Physician: Carlos Knutson, Orthopedic Surgery, Encounter Date: 01/31/2023 Results Created Date Observation Date Name Description Value Unit Range Abnormal Flag Note LastModifiedBy Organization Detail LastModifiedTime 09/17/1907/15/2022 XR, hip + pelvi s, unila teral No observ ation record ed. [email or web address] Not Available 2022 19:05:02 01/14/20 XR, hip + pelvi s, unila teral , 2 or 3 view No observ ation record ed. [facility] [place] [address], [place], [address], 01/13/2023 15:52:30 01/16/2001/13/2023 MRI, lumba r spine , w/o contr ast No observ ation record ed. Not Available 2022 12:15:55 01/16/20 MRI, lumba r spine , w/wo contr ast No observ ation record ed. [email or web address] Not Available 2022 12:16:37 02/01/20 XR, hip, unila teral No observ ation record ed. [facility] [place] [address], [place], [address], 02/01/2023 16:54:08 Result Notes None recorded. Problems Name Problem SNOMED Code Status Onset Date Resolution Date Notes Provider Name and Address Organization Details Recorded Time Pain of left hip joint 1792606317883 00 Active 2022 MAITE White, [employer] 14:07:48 Osteoarthri tis of left hip joint 9592268365591 08 Active 2022 MAITE White, [employer] 14:50:53 Problem Notes None recorded. Medical Equipment None Reported. Allergies No known drug allergies Medications Name Sig Start Date Stop Date Status Note LastModified by Organization Details LastModified Time cyclobenzap rine 10 mg tablet TAKE 1 TABLET BY MOUTH 3 TIMES A DAY NEEDED FOR MUSCLE SPASMS 10/14 completed Not Available Not Available Not Available pravastatin 40 mg tablet TAKE 1 TABLET BY MOUTH EVERY DAY active Not Available Not Available No t Available hydrocodone 5 mg-acetamin ophen 325 mg tablet TAKE 1 TABLET BY MOUTH EVERY 4 TO 6 HOURS NEEDED FOR PAIN 10/14 completed Not Available Not Available Not Available sildenafil 100 mg tablet TAKE 1 TABLET BY MOUTH 30 MINUTES TO 4 HOURS DAILY BEFORE SEXUAL ACTIVITY NEEDED active Not Available Not Available No t Available enalapril 10 mg-hydrochl orothiazide 25 mg tablet TAKE 1 TABLET BY MOUTH DAILY active Not Available Not Available No t Available trazodone 100 mg tablet TAKE 1 TABLET BY MOUTH EVERY DAY AT BEDTIME active Not Available Not Available No t Available diclofenac sodium 75 mg tablet,felicia yed release TAKE 1 TABLET BY MOUTH TWICE DAILY active Not Available Not Available No t Available lorazepam 1 mg tablet TAKE 1 TABLET BY MOUTH TWICE DAILY NEEDED FOR ANXIETY active Not Available Not Available No t Available fenofibrate 160 mg tablet TAKE 1 TABLET BY MOUTH EVERY DAY active Not Available Not Available No t Available Vitals Date Recorded Body height Body mass index (BMI) Body weight Provider Name and Address Organization Details Last Updated DateTime 09/16/2022 177.8 cm 28.7 kg/m2 52643.47 g Cheyenne Fox Nina [employer] [facility] [employer] 09/16/2022 14:20:40 Date Recorded Body height Provider Name an d Address Organization Details Last Updated DateTime 10/14/2022 177.8 cm Cheyenne Fox [employer] 10/14/2022 14:49:38 Date Recorded Body height Provider Name an d Address Organization Details Last Updated DateTime 01/13/2023 177.8 cm Cheyenne Fox [facility] [employer] [facility] [employer] 01/13/2023 14:24:46 Date Recorded Body height Body mass index (BMI) Body weight Provider Name and Address Organization Details Last Updated DateTime 01/31/2023 177.8 cm 28.8 kg/m2 59295.07 g MAITE White [place] [facility] [employer] 01/31/2023 12:40:58 Social History None recorded. Functional Status Question Answer Note LastModified by Organization D etails LastModified Time What is your level of alcohol consumption? None [email or web address] Information not available 09/16/2022 Mental Status None recorded. Family History Relationship Description Onset Age of this Age Resolved Age Notes LastModified by Organization Details LastModified Time Father Heart disease [email or web address] Not available 2022 14:13:35 Mother Heart disease Not available 2022 14:13:35 Medical History Condition Response HYPERTENSION Y Past Encounters Encounter ID Performer Location Encounter Start Date Encounter Closed Date Diagnosis/Indication Diagnosis SNOMED-CT Code Diagnosis ICD10 Code Diagnosis IMO Codes Diagnosis Note [id number] Carlos Knutson MD [facility] [place] [address] [place] [address] 09/16/2022 13:51:04 09/16/2022 16:46:43 Pain of left hip joint [id number] 75139 M25.552 [id number] Carlos Knutson MD [facility] [place] [address] [place] [address] 10/14/2022 14:46:47 10/29/2022 10:15:58 Osteoarthritis of left hip joint [id number] 27295 M16.12 Z79.1 [id number] Carlos Knutson MD [facility] [place] [address] [place] [address] 01/13/2023 14:22:09 01/20/2023 11:21:47 Osteoarthritis of left hip joint [id number] 42192 M16.12 [id number] Carlos Knutson MD [facility] [place] [address] [place] [address] 01/31/2023 11:44:12 02/03/2023 10:06:43 Osteoarthritis of left hip joint [id number] 58222 M16.12 Health Concerns Section Related Observation LastModified by Organization Detai ls LastModified Time None Recorded Concern Status LastModified by Organization Details LastModified Time None Recorded Advance Directives Directive None Recorded Payers Insurance Date Sequence Insurance Name Policy Number Policy Lechuga Covered Member ID Lechuga Member ID Guarantor Name 03/11/2023 1 [employer] (POS) [id number] Alber Arciniega [id number] 1 Alber Arciniega Notes Date Note Type Note Provider Name and Address Organization Details Recorded Time 10/14/2022 text/html Patient returns for follow-up of his pain deep in the center of his left buttock. He saw Avtar Field PA-C on 09/16/2022. He prescribed diclofenac 75 mg twice daily. x-rays from 07/15/2022 left hip show moderately severe to severe type 1 osteoarthritis left hip. He has less than a mm of superior lateral joint space remaining between the femoral head in the superior lateral margin of the acetabulum. Prominent inferomedial osteophyte noted. Other findings on the AP pelvis include significant osteitis pubis and narrowing of the pubic symphysis and moderate to moderately severe osteoarthritis the right hip. Also, he may have fusion of his sacroiliac joints. Only the lowest 1/2 inch of the sacroiliac joints are visible Suggesting the joint space bilaterally above this lowest area of the sacroiliac joints may be fused. 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 The fusion involves the anterior 2/3 of the joints bilaterally seen well on axial image 6-31. I reviewed the literature with the groove will search and was surprised to see that the incidence of spontaneous sacroiliac joint fusion was estimated at 24% in their patients in their 60s and 70s. I reviewed his lumbar spine x-rays and there was no evidence to suggest ankylosing spondylitis radiographically. Patient underwent L3-4 and L4-[address] Fitch on March 28 this year 6 and half months ago. He is active. He has been golfing going to the gym 3 of times a week. He feels that on his golf swing during the turn. His chief complaint again is pain deep in the center of the buttock. He feels this if he stands too long or if he sits too long. He notes occasional anterolateral hip pain. He denies any groin or thigh pain. He states he has noticed no no numbness or tingling in the left leg since his surgery. He notes that since he started the diclofenac, after 2 days the buttock pain became very tolerable. He is doing much better overall. Carlos Knutson MD [address], [facility] [address], [place], [address], [employer] 10/28/2022 15:18:24 01/13/2023 text/html Patient returns. I last saw him on 10/14/2022 and he was noted t have radiographically severe osteoarthritis left hip moderately severe osteoarthritis the right hip. He was also having complaints of pain in the she could left buttock. He described that he was having pain in that area with 12 swing or standing too long or sitting too long and I felt this was likely due to residual symptoms from arthritis meds lumbar spine or possibly related to his sacroiliac joints which looked used on radiograph. Therefore I doubted the sacroiliac joint would be a source of his symptoms. He has been taking diclofenac and he tolerates this well. He did see Dr. Rouse about his cheek the buttock pain. He underwent L3-4 5 posterior decompression in March of this year, 9 months ago. His chief complaint is pain in the center of his lower buttock after he walks a certain distance. He is able to workout at the gym and do leg presses and abduction strengthening exercises as no discomfort whatsoever and when he gets up to start to walk is no discomfort but after he walks for about half a mi he starts to feel a nagging pain in the center of the cheek and left buttock and it gets worse and worse as he continues to walk and he feels his legs get weak. Carlos Knutson MD [address], [facility] [address], [place], [address], [employer] 01/18/2023 15:41:01 01/31/2023 text/html patient returns. He is here regarding his difficulties with his legs feeling weak. It is hard to pecan picker his left foot. Sometimes when he walks a feels like he has 10 lb weight is on his feet. He has no discomfort of the right hip. He has off and on pain in deep in the cheek of his left buttock and more recently has been feeling more pain lateral aspect of his left hip and anterolateral hip. He continues to take diclofenac. He has had to give up walking at the gym. He still does weight machine exercises for his legs but does these very lightly. He has to climb steps 1 at a time. He had MRI scan of his lumbar spine which showed no evidence of significant central canal stenosis. He does have degenerative changes. At L4-5 prominent scar tissue than the left-sided spinal canal with probable recurrence no real cyst impinging the right-sided thecal sac at that level new resulting in moderate to severe neural foraminal narrowing on both sides. Marked bilateral facet joint degenerative joint disease noted. At L3-4 there is a fairly high-grade right-sided neural foraminal narrowing due to right broad based far lateral disc herniation with facet joint hypertrophy. At L2-3 there is borderline central canal stenosis. Patient saw Dr. Rouse and she did not feel that he needed any surgical intervention to address any these findings. I reviewed the MRI images and the axial images through the sacrum show that he has partial fusion of sacroiliac joints bilaterally with apparent fusion of the anterior 60% of the sacroiliac joints bilaterally. This corresponds to the appearance of possible sacroiliac joint fusion on the previous radiographs. previous x-rays left hip and AP pelvis demonstrate severe type 1 osteoarthritis of the left hip bone touching bone superolaterally. He has moderately severe osteoarthritis of the right hip. He has no symptoms in the right hip. Carlos Knutson MD [address] [place] [address], [place] [address], [place], [address], [place] [employer] [facility] 02/01/2023 16:56:15
--- OUTSIDE RECORDS SUMMARY | 2025-01-18 01:27 | XMS_ITS | Clinical Summary ---
Author Organization [facility] Address [address] [place] [id number] Care Team Providers Care Parking Patroller Name Role Phone Chevy Toney MD Primary Care Provider [phone] Social History Tobacco Use Types Packs/Day Years Used Date Smoking Tobacco: Never Assessed Sex and Gender Information Value Date Recorded Sex Assigned at Male 04/02/2024 11:11 AM HOROLOGIST Legal Sex Male 10:59 AM HOROLOGIST Gender Identity Not on file Sexual Orientation Not on file Plan of Treatment Health Maintenance Due Date Last Done Comments Colorectal Cancer Screening Colonoscopy (10 Years) 1959 Hepatitis C 1977 DTaP, Tdap and Td Vaccines (1 - Tdap) 1978 Pneumococcal Vaccine: 50+ Years (1 of 1 - PCV) 2009 COVID-19 Vaccine ( - season) 2024 11/17/2023, 12/12/2022, 12/29/2021, Additional history exists Influenza Adult (#1) 2024 11/17/2023, 12/12/2022, 12/29/2021, Additional history exists RSV Immunization or 60+ Years (1 - 1-dose 75+ series) 2034 Zoster Vaccines Completed 11/23/2019, 08/26/2019 Hepatitis A Vaccines Aged Out No long er eligible based on patient's age to complete this topic Meningococcal B Vaccine Aged Out No l onger eligible based on patient's age to complete this topic Meningococcal Vaccine Aged Out No freda chris eligible based on patient's age to complete this topic RSV Immunizations Under 20 Months Aged Out No longer eligible based on patient's age to complete this topic Insurance [employer] Care Teams Parking Patroller Relationship Specialty Start Date End Date Chevy Toney MD [address] [address] PCP - General FAMILY PRACTICE 04/02/24
[2025-01-18 08:47] VITALS: BP 136/76; PULSE 86; RESP 16; TEMP 36.4; O2SAT 98; BMI 25.9
[2025-01-18] MEDS: LACTATED RINGERS 1,000 ML 150 ML IV CONT (08:53)
--- NOTE | 2025-01-18 09:36 | WPDANESEPPF ---
Anes - Initial Pre Proc Eval Procedure: Operation Date: 01/18/25 10:00 Proposed Procedures p Screening Colonoscopy - Marvin Spain DO Date/Time: 01/18/25 09:36 Surgeon: Marvin Spain DO Pre Op Diagnosis: Neoplasm screening Patient Data Age: 64 Gender: M Height: 1.83 m Weight: 86.8 kg Last Vital Signs Temp 97.5 F L 01/18/25 08:47 Pulse 86 01/18/25 08:47 Resp 16 01/18/25 08:47 BP 136/76 01/18/25 08:47 Pulse Ox 98 01/18/25 08:47 O2 Del Method Room Air 01/18/25 08:47 Allergies Allergy/AdvReac Type Severity Reaction Status Date / Time No Known Allergies Allergy Verified 01/18/25 08:46 Home Medications ?Medication ?Instructions ?Recorded ?Confirmed ?Type sildenafil 100 mg tablet 100 mg PO PRN PRN Erectile 07/12/22 01/04/25 History Dysfunction tadalafil 20 mg tablet 20 mg PO DAILY PRN sexual activity 09/04/22 01/04/25 History clomiphene citrate 50 mg tablet 25 mg PO DAILY 08/31/24 01/18/25 History (Clomid) fenofibrate 160 mg tablet 160 mg PO DAILY #90 tabs 08/31/24 01/18/25 Rx lisinopril 10 1 tablet PO DAILY #90 tabs 08/31/24 01/18/25 Rx mg-hydrochlorothiazide 12.5 mg tablet pravastatin 40 mg tablet 40 mg PO DAILY #90 tabs 08/31/24 01/18/25 Rx trazodone 100 mg tablet 100 mg PO QHS #90 tabs 08/31/24 01/18/25 Rx tadalafil 5 mg tablet (Cialis) 5 mg PO DAILY 01/04/25 01/18/25 History Patient hx anesthesia problems: none Family hx anesthesia problems: none Results Review: All pre-operative results and documents have been reviewed as part of the pre-operative evaluation. [facility] Past Medical History Medical History Normal colonoscopy 03/10 Repeat 03/20 Surgical History Surgical History History of dental surgery History of back surgery (~03/29/22) History of arthroscopy of left knee 1985 1992 History of hemorrhoidectomy (2017) History of vasectomy Family History Family History Sibling Family history of elevated blood lipids Father Family history of cardiovascular disease Mother No problems noted. Other Diabetes mellitus Family history of malignant neoplasm Hypertension Social History Social History Social History: Alber feels very confident in filling out medical forms and no assistance received w/in the last 12 months. Smoking status: Former smoker Second hand tobacco smoke exposure: No Substance use type: does not use Lack of Transportation: No Lack of Food: Never True Current Housing: I Have Housing Concerned About Future Housing: No Difficulty Paying Gas/Electric Bills: No Difficulty Paying for Meds: No Currently Unemployed: No Education: Associate Degree Difficulty w/ Childcare or Family Care: No Living arrangements: with family Occupation/Education: retired Gender identity (if verbalized by the patient): Male Sexual Orientation (if Verbalized by the Patient): Straight or Heterosexual Agree to blood products: Yes Anes - Eval Final PreProcedure Day of Procedure 01/18/25 09:36 Patient weight: normal Lungs: normal air movement Airway: Mallampati scale class II Neurological: alert and oriented Last oral intake: >/= 8 hours ASA classification: II Emergent: no Anesthetic plan: proceed Anesthesia type and monitoring: general GIVS and standard monitoring Results Review: All pre-operative results and documents have been reviewed as part of the pre-operative evaluation. HTN, hyperlipidemmia, ex smoker, active in the gym 3 x weekly, no cp or sob. Informed Consent: The patient's anesthetic plan and its attendant risks and benefits were discussed with the patient/family/POA. Questions were solicited and answers provided to the satisfaction of the patient/family/POA.
--- NOTE | 2025-01-18 09:52 | PM.IMHP ---
H&P: HPI History of Present Illness Date/Time: 01/18/25 09:52 Chief Complaint: Screening for colon cancer Narrative: This is a 64-year-old man who presents for colonoscopy. His last colonoscopy was 10 years ago. He denies hematochezia or melena. He denies family history of colon cancer. Review of Systems Review of Systems: All systems reviewed & are unremarkable except as noted in HPI and below Constitutional: Constitutional: Denies chills, Denies fever(s), Denies headache(s) and Denies weight loss Eyes: Eyes: Denies change in vision ENT: Denies dizziness, Denies headache(s), Denies neck mass and Denies throat swelling Cardiovascular: Cardiovascular: Denies chest pain, Denies lightheadedness and Denies dyspnea Respiratory: Respiratory: Denies cough, Denies dyspnea and Denies wheezing Gastrointestinal: Gastrointestinal: Denies abdominal pain, Denies change in bowel habits, Denies nausea and Denies vomiting Genitourinary: Genitourinary: Denies hematuria and Denies dysuria Musculoskeletal: Musculoskeletal: Reports as per HPI Integumentary/Breasts: Skin/Breast: Reports as per HPI Neurologic: Denies dizziness and Denies headache(s) Allergic/Immunologic: Allergic/Immunologic: Denies throat swelling and Denies wheezing [facility] Past Medical History Medical History Normal colonoscopy 03/10 Repeat 03/20 Surgical History Surgical History History of dental surgery History of back surgery (~03/29/22) History of arthroscopy of left knee 1985 1992 History of hemorrhoidectomy (2017) History of vasectomy Family History Family History Sibling Family history of elevated blood lipids Father Family history of cardiovascular disease Mother No problems noted. Other Diabetes mellitus Family history of malignant neoplasm Hypertension Social History Social History Social History: Alber feels very confident in filling out medical forms and no assistance received w/in the last 12 months. Smoking status: Former smoker Second hand tobacco smoke exposure: No Substance use type: does not use Lack of Transportation: No Lack of Food: Never True Current Housing: I Have Housing Concerned About Future Housing: No Difficulty Paying Gas/Electric Bills: No Difficulty Paying for Meds: No Currently Unemployed: No Education: Associate Degree Difficulty w/ Childcare or Family Care: No Living arrangements: with family Occupation/Education: retired Gender identity (if verbalized by the patient): Male Sexual Orientation (if Verbalized by the Patient): Straight or Heterosexual Agree to blood products: Yes Meds Home Medications and Allergies Home Medications ?Medication ?Instructions ?Recorded ?Confirmed ?Type sildenafil 100 mg tablet 100 mg PO PRN PRN Erectile 07/12/22 01/04/25 History Dysfunction tadalafil 20 mg tablet 20 mg PO DAILY PRN sexual activity 09/04/22 01/04/25 History clomiphene citrate 50 mg tablet 25 mg PO DAILY 08/31/24 01/18/25 History (Clomid) fenofibrate 160 mg tablet 160 mg PO DAILY #90 tabs 08/31/24 01/18/25 Rx lisinopril 10 1 tablet PO DAILY #90 tabs 08/31/24 01/18/25 Rx mg-hydrochlorothiazide 12.5 mg tablet pravastatin 40 mg tablet 40 mg PO DAILY #90 tabs 08/31/24 01/18/25 Rx trazodone 100 mg tablet 100 mg PO QHS #90 tabs 08/31/24 01/18/25 Rx tadalafil 5 mg tablet (Cialis) 5 mg PO DAILY 01/04/25 01/18/25 History Allergies Allergy/AdvReac Type Severity Reaction Status Date / Time No Known Allergies Allergy Verified 01/18/25 08:46 Vital Signs Vital Signs - 24 hr 01/18/25 08:47 Temperature 97.5 F L Pulse Rate 86 Respiratory Rate 16 Blood Pressure 136/76 Pulse Oximetry 98 Oxygen Delivery Room Air Exam Const: General: no acute distress and alert Orientation/consciousness: patient oriented x3 HENMT: Head: normocephalic and atraumatic Ears: hearing grossly normal bilaterally Face/Nose/Sinus: Normal nares present Mouth: Yes Normal oral and palatal mucosa present Eyes: Periorbital: periorbital findings normal Sclera: sclerae normal EOM: EOMs intact bilaterally Neck: Neck: normal visual inspection, no lymphadenopathy and trachea midline Chest: Chest palpation & inspection: normal inspection of the chest Resp: Effort & Inspection: normal respiratory effort Auscultation: clear to auscultation bilaterally Cardio: Jugular venous distension: no JVD Rate: regular rate Rhythm: regular rhythm Heart sounds: S1 normal heart sound present and S2 normal heart sound present Peripheral pulses: Peripheral pulses 2+ throughout GI: Inspection: normal to inspection GI Palp: Yes Soft to palpation, No Tenderness to palpation present (GI), No Guarding due to palpation present (GI) and No Rebound tenderness present Percussion: Yes normal to percussion Auscultation: normal bowel sounds : General: Yes no CVA tenderness Back/Spine/Pelvis: Back: no CVA tenderness Neuro: General: patient oriented x3, no focal motor deficits and CN's II-XI intact bilaterally Cognition (Neuro): normal cognition Speech: normal speech Motor exam (neuro): 5/5 motor strength present throughout Extrem: General: capillary refill normal and no clubbing, cyanosis or edema Assessment and Plan Assessment and plan (1) Screening for colorectal cancer: Code(s): Z12.11 - Encounter for screening for malignant neoplasm of colon; Z12.12 - Encounter for screening for malignant neoplasm of rectum Status: Acute Assessment and Plan: I have recommended colonoscopy. I have discussed the procedure, risks, benefits, and alternatives. Questions were answered. Patient is agreeable to proceed.
[2025-01-18 10:19] VITALS: BP 105/74; PULSE 74; RESP 20; O2SAT 98
[2025-01-18 10:29] VITALS: BP 114/62; PULSE 72; RESP 20; O2SAT 98
[2025-01-18 10:39] VITALS: BP 110/58; PULSE 70; RESP 20; O2SAT 98
== END 2025-01-18 10:45 | disposition home or self-care (01) ==
PROVIDERS: PCP Family Medicine Adolescent Medicine; Visit Provider Surgery
PROC: 0DJD8ZZ Inspection of Lower Intestinal Tract, Via Natural or Artificial Opening Endoscopic (ICD-10-PCS; CPT 45378; principal; 2025-01-18 10:00)
DX: Z12.11 Encounter for screening for malignant neoplasm of colon (principal); K57.30 Diverticulosis of large intestine without perforation or abscess without bleeding; I10 Essential (primary) hypertension; E78.5 Hyperlipidemia, unspecified; M17.12 Unilateral primary osteoarthritis, left knee; Z98.890 Other specified postprocedural states; Z98.1 Arthrodesis status; Z87.891 Personal history of nicotine dependence; Z80.9 Family history of malignant neoplasm, unspecified; Z82.49 Family history of ischemic heart disease and other diseases of the circulatory system
CPT/HCPCS: G0105; J2003; J2704; J7120